=== PATIENT | female | born 1970 | race Caucasian/White ===

== ENCOUNTER 2019-03-18 18:32 | Emergency (ER) | payer OTHER ==
[2019-03-18 18:40] VITALS: BP 183/89
[2019-03-18] MEDS ORDERED: KETOROLAC TROMETHAMINE 60 MG/2 ML SDV IM ONE (19:20)
--- NOTE | 2019-03-18 19:25 | ER Document Report ---
ED Medical Screen (RME) - General Chief Complaint: Arm Pain Stated Complaint: ARM PAIN Time Seen by Provider: 03/18/19 19:02 Notes: Patient is a 49-year-old female presents to the emergency department with bilateral elbow and forearm pain. States on Friday night she had some generalized achiness in bilateral elbows. States it has progressed since Friday. States she feels as though she cannot fully extend both elbows due to pain. Patient is also complaining of generalized pain in both elbows and forearms with supination and pronation of bilateral forearms. Patient is denying any trauma or injury that she knows of. Denying any fevers, redness, swelling to either upper extremities. Patient does have passive range of motion of bilateral elbows, bilateral wrists. Active range of motion is limited secondary due to pain. Discussed this case with my attending Dr. Lopez who suggested to start to X- rays. GENERAL: Alert, interacts well. No acute distress. EXTREMITIES: Moves all 4 extremities spontaneously. No edema, normal radial and dorsalis pedis pulses bilaterally. No cyanosis. I have greeted and performed a rapid initial assessment of this patient. A comprehensive ED assessment and evaluation of the patient, analysis of test results and completion of the medical decision making process will be conducted by additional ED providers. I have specifically instructed the patient or family members with the patient to immediately return to any nursing staff should anything change in the patient's condition or with their chief complaint. This medical record was dictated with voice recognizing software. There may be grammatical, syntax errors that are unintended. - Related Data Allergies/Adverse Reactions: No Known Allergies Allergy (Unverified 03/18/19 18:34) Past Medical History - Social History Chew tobacco use (# tins/day): No Frequency of alcohol use: Occasional Drug Abuse: None Renal/ Medical History: Reports: Hx Kidney Stones. Denies: Hx Peritoneal Dialysis Past Surgical History: Reports: Hx Thyroid Surgery Physical Exam - Vital signs Vitals: Temp Pulse Resp BP Pulse Ox 98.3 F 98 18 183/89 H 97 03/18/19 18:38 03/18/19 18:38 03/18/19 18:38 03/18/19 18:38 03/18/19 18:38 Course - Vital Signs Vital signs: Temp Pulse Resp BP Pulse Ox 98.3 F 98 18 183/89 H 97 03/18/19 18:38 03/18/19 18:38 03/18/19 18:38 03/18/19 18:38 03/18/19 18:38
--- NOTE | 2019-03-18 19:54 | RADIOLOGY REPORT (SQ) ---
EXAM DESCRIPTION: FOREARM BILATERAL 2 VIEWS COMPLETED DATE/TIME: 03/18/2019 7:44 pm REASON FOR STUDY: pain COMPARISON: None. NUMBER OF VIEWS: Two views right. Two views left. TECHNIQUE: Two radiographic images acquired of the right and left forearm, including elbow and wrist in at least one projection. LIMITATIONS: None. FINDINGS: MINERALIZATION: Normal. BONES: No acute fracture. No worrisome bone lesions. SOFT TISSUES: No obvious swelling or foreign body. OTHER: No other significant finding. IMPRESSION: NEGATIVE STUDY OF THE RIGHT AND LEFT FOREARM. NO RADIOGRAPHIC EVIDENCE OF ACUTE INJURY. TECHNICAL DOCUMENTATION: JOB ID: [id number] [employer]- All Rights Reserved Reading location - IP/workstation name: [email or web address]
[2019-03-18] MEDS ORDERED: METHYLPREDNISOLONE INJ 125 MG/2 ML SDV IM ONE (20:59)
[2019-03-18] MEDS ORDERED: CYCLOBENZAPRINE HCL 10 MG TABLET PO ONE (21:00)
--- NOTE | 2019-03-18 21:08 | ER Document Report ---
ED Extremity Problem, Upper - General Chief Complaint: Arm Pain Stated Complaint: ARM PAIN Time Seen by Provider: 03/18/19 19:02 Notes: Patient is a 49-year-old female that comes to the emergency department for chief complaint of pain in her forearms bilaterally, this is been going on for several days worsening. She states she hurts in her forearms if she extends her elbows, but her worst pain is in her left ulnar area (she points) with movement of the wrist and she has pain shooting down her forearm from her elbow to her hand on the right side. She has numbness intermittently in the fourth and fifth digits of the right hand, but not in the other 3. She has some pain with flexion of the hands as well. She denies injury but she does work with small tools and typing persistently, she states she almost always has pain in her joints but this is worse than usual. She states [id number] ibuprofen has not been helping much. She denies redness, swelling, fever/chills. She denies any diagnosed medical history other than hypothyroidism on Synthroid and kidney stones. - Related Data Allergies/Adverse Reactions: No Known Allergies Allergy (Unverified 03/18/19 18:34) Past Medical History - General Information source: Patient - Social History Smoking Status: Never Smoker Chew tobacco use (# tins/day): No Frequency of alcohol use: Occasional Drug Abuse: None Lives with: Family Family History: Reviewed & Not Pertinent Patient has suicidal ideation: No Patient has homicidal ideation: No Renal/ Medical History: Reports: Hx Kidney Stones. Denies: Hx Peritoneal Dialysis Past Surgical History: Reports: Hx Thyroid Surgery - Immunizations Immunizations up to date: Yes Hx Diphtheria, Pertussis, Tetanus Vaccination: Yes Review of Systems - Review of Systems Constitutional: No symptoms reported EENT: No symptoms reported Cardiovascular: No symptoms reported Respiratory: No symptoms reported Gastrointestinal: No symptoms reported Genitourinary: No symptoms reported Female Genitourinary: No symptoms reported Musculoskeletal: See HPI Skin: See HPI Hematologic/Lymphatic: No symptoms reported Neurological/Psychological: No symptoms reported Physical Exam - Vital signs Vitals: Temp Pulse Resp BP Pulse Ox 98.3 F 98 18 183/89 H 97 03/18/19 18:38 03/18/19 18:38 03/18/19 18:38 03/18/19 18:38 03/18/19 18:38 - Notes Notes: GENERAL: Alert, interacts well. No acute distress. HEAD: Normocephalic, atraumatic. EYES: Pupils equal, round, and reactive to light. Extraocular movements intact. ENT: Oral mucosa moist, tongue midline. Oropharynx unremarkable. Airway patent. LUNGS: Clear to auscultation bilaterally, no wheezes, rales, or rhonchi. No respiratory distress. HEART: Regular rate and rhythm. No murmur ABDOMEN: Soft, non-tender. Non-distended. EXTREMITIES: Pain with palpation over the right elbow with reproduced symptoms of shooting pain down the left hand. Range of motion of the elbow is intact, normal shoulder exam. Hand examination shows some tenderness over the thenar area but no deficits in range of motion normal capillary refill and sensation. No snuffbox tenderness. Left wrist with pain over the ulnar aspect at the wrist, no snuffbox tenderness, normal range of motion although range of motion is painful. Normal hand exam. Normal elbow exam. Normal shoulder exam. Normal capillary refill and sensation. BACK: no cervical, thoracic, lumbar midline tenderness. No saddle anesthesia, normal distal neurovascular exam. NEUROLOGICAL: Alert and oriented x3. Normal speech. Cranial nerves II through XII grossly intact. PSYCH: Normal affect, normal mood. SKIN: Warm, dry, normal turgor. No rashes or lesions noted. Course - Re-evaluation Re-evalutation: X-rays are unremarkable. There is no swelling, erythema, fever, or lack of joint range of motion suggesting septic joint. Patient does have bilateral symptoms but they are different on each side, right side has evidence of ulnar compression with cubital tunnel syndrome, left side has tendinitis near the distal ulna. Unremarkable exam otherwise. Patient reports worsening symptoms for a while, unfortunately her occupation seems to make these joints and tendons inflamed. I have recommended work-release but she declined, states she needs to work. She was given a dose of steroids and will be provided steroids at home, recommended rest, provided with muscle relaxer after discussion of options on patient's request. Discussed follow-up and return precautions. Patient states understanding and agreement. She states she [facility]. - Vital Signs Vital signs: Temp Pulse Resp BP Pulse Ox 98.3 F 98 18 183/89 H 97 03/18/19 18:38 03/18/19 18:38 03/18/19 18:38 03/18/19 18:38 03/18/19 18:38 Discharge - Discharge Clinical Impression: Acute wrist pain Qualifiers: Laterality: unspecified laterality Qualified Code(s): M25.539 - Pain in unspecified wrist Elbow pain Qualifiers: Laterality: bilateral Qualified Code(s): M25.521 - Pain in right elbow Condition: Stable Disposition: HOME, SELF-CARE Additional Instructions: Your evaluation shows evidence of cubital tunnel syndrome on the right arm/elbow causing numbness in the fourth and fifth digits. Resting, icing, taking the prescribed medications can make symptoms resolve, however if symptoms continue you will likely need additional orthopedic management for this. In your left wrist there appears to be simply tendinitis. The provided brace for your wrist can help with this, use as needed. Take the muscle relaxer Flexeril as prescribed, this can sedate, recommendation is to use this exclusively at night. While taking the prednisone this can cause significant blood sugar elevations or weight gain if you are not careful, avoid carbohydrates in your diet. Because of ongoing joint pains consider autoimmune work-up with primary care and follow-up as well. Return if you worsen including severe swelling or pain, fever, or any other concerning or worsening symptoms. Prescriptions: Cyclobenzaprine HCl [Flexeril 5 mg Tablet] 1 - 2 tab PO TID PRN #15 tablet PRN Reason: Prednisone [Deltasone 10 mg Tablet] 10 mg PO ASDIR PRN #21 tablet PRN Reason: Forms: Elevated Blood Pressure
== END 2019-03-18 21:20 | disposition home or self-care (01) ==
LOC: ER 18:32
DX: M25.532 Pain in left wrist (principal); M25.521 Pain in right elbow; M79.601 Pain in right arm; M79.602 Pain in left arm
CPT/HCPCS: 99283; 96374; 96375; 73090; L3908; J1885; J2930

== ENCOUNTER 2019-04-09 09:54 | Emergency (ER) | payer OTHER ==
--- NOTE | 2019-04-09 10:17 | ER Document Report ---
ED Medical Screen (RME) - General Chief Complaint: Skin Problem Stated Complaint: SKIN ISSUE Time Seen by Provider: 04/09/19 10:07 Mode of Arrival: Ambulatory Information source: Patient Notes: Patient is a 49-year-old female presenting to the emergency department with multiple vague complaints today. She reports low-grade fevers at home over the last week, she reports all over joint pain and swelling over the last 10 days. She also reports multiple red areas throughout her body specifically on her legs and bilateral axilla. She denies any nausea, vomiting, diarrhea or dysuria. She does report she has a history of hypothyroidism with subsequent thyroid removal. She states she takes levothyroxine but has not had her thyroid levels checked in at least 7 months. She states there was a change in her dosage by 1 of [place] without checking her levels prior to decreasing the dose. Exam: Erythematous areas to bilateral axilla, nonindurated, nonfluctuant, heat noted. Unable to examine allegedly lesions on the legs as patient currently being seen in [facility] track and patient is wearing jeans. Due to patient's multiple symptoms patient is upgraded to KAREN 3, she will be seen on the main side. I have greeted and performed a rapid initial assessment of this patient. A comprehensive ED assessment and evaluation of the patient, analysis of test results and completion of the medical decision making process will be conducted by additional ED providers. I have specifically instructed the patient or family members with the patient to immediately return to any nursing staff should anything change in the patient's condition or with their chief complaint. This medical record was dictated with voice recognizing software. There may be grammatical, syntax errors that are unintended. - Related Data Allergies/Adverse Reactions: No Known Allergies Allergy (Verified 04/09/19 09:57) Past Medical History Renal/ Medical History: Reports: Hx Kidney Stones. Denies: Hx Peritoneal Dialysis Past Surgical History: Reports: Hx Thyroid Surgery - Immunizations Immunizations up to date: Yes Hx Diphtheria, Pertussis, Tetanus Vaccination: Yes
[2019-04-09 11:15] LABS: HEMATOCRIT 15.6 % (36.0-47.0); MEAN CORPUSCULAR HEMOGLOBIN 35.2 pg (27.0-33.4); MEAN CORPUSCULAR HGB CONC 33.3 g/dL (32.0-36.0); MEAN CORPUSCULAR VOLUME 106 fl (80-97); RED BLOOD COUNT 1.47 10^6/uL (3.72-5.28)
[2019-04-09 11:19] LABS: APPEARANCE,URINE CLEAR; BILIRUBIN,URINE NEGATIVE (NEGATIVE); COLOR,URINE YELLOW; GLUCOSE, URINE NEGATIVE (NEGATIVE); KETONES,URINE NEGATIVE (NEGATIVE); LEUKOCYTE ESTERASE,URINE SMALL (NEGATIVE); NITRITE,URINE NEGATIVE (NEGATIVE); PROTEIN,URINE NEGATIVE (NEGATIVE); URINE SPECIFIC GRAVITY 1.006; UROBILINOGEN,URINE NEGATIVE mg/dL (<2.0)
[2019-04-09 11:29] LABS: ALBUMIN 4.1 g/dL (3.5-5.0); ALKALINE PHOSPHATASE 82 U/L (38-126); ANION GAP 10 (5-19); ASPARTATE AMINO TRANSFERASE 33 U/L (14-36); BILIRUBIN,DIRECT 0.3 mg/dL (0.0-0.4); BILIRUBIN,TOTAL 0.7 mg/dL (0.2-1.3); BLOOD UREA NITROGEN 16 mg/dL (7-20); CARBON DIOXIDE 26 mmol/L (22-30); CHLORIDE 103 mmol/L (98-107); GLUCOSE 110 mg/dL (75-110); POTASSIUM 3.8 mmol/L (3.6-5.0); TOTAL PROTEIN 7.2 g/dL (6.3-8.2)
[2019-04-09 11:51] LABS: FREE T3 2.37 pg/mL (2.77-5.27); FREE T4 (FREE THYROXINE) 2.17 ng/dL (0.78-2.19)
[2019-04-09 11:59] LABS: HEMOGLOBIN 5.2 g/dL (12.0-15.5)
[2019-04-09 12:04] LABS: THYROID STIMULATING HORMONE 0.89 uIU/mL (0.47-4.68)
[2019-04-09 12:07] LABS: ABSOLUTE LYMPHOCYTES# (MANUAL) 3.8 10^3/uL (0.5-4.7); ABSOLUTE MONOCYTES # (MANUAL) 2.1 10^3/uL (0.1-1.4); BAND NEUTROPHILS % (MANUAL) 5 % (3-5); BASOPHILS % (MANUAL) 0 % (0-2); EOSINOPHILS % (MANUAL) 0 % (0-6); IMMATURE MONONUCLEAR% (MANUAL) 11 % (0); LYMPHOCYTES % (MANUAL) 11 % (13-45); METAMYELOCYTES % (MANUAL) 5 % (0); MONOCYTES % (MANUAL) 6 % (3-13); MYELOCYTES % (MANUAL) 5 % (0); PROMYELOCYTES % (MANUAL) 1 % (0); SEGMENTED NEUTROPHILS % (MAN) 56 % (42-78); TOTAL CELLS COUNTED 100
[2019-04-09 12:10] LABS: POLYCHROMASIA SLIGHT
[2019-04-09 12:11] LABS: ANISOCYTOSIS 2+; PLATELET COMMENT DECREASED; POIKILOCYTOSIS 2+; STOMATOCYTES 2+
[2019-04-09 12:12] LABS: WHITE BLOOD COUNT 34.6 10^3/uL (4.0-10.5)
[2019-04-09 12:16] LABS: PATH REVIEW PATHOLOGIST REVIEWED
[2019-04-09 12:19] LABS: PLATELET COUNT 12 10^3/uL (150-450)
--- NOTE | 2019-04-09 13:39 | ER Document Report ---
ED General - General Mode of Arrival: Ambulatory <MARY MOE - Last Filed: 04/09/19 20:15> <CHANTE CHOWDHURY - Last Filed: 04/09/19 21:15> - General Chief Complaint: Skin Problem Stated Complaint: SKIN ISSUE Time Seen by Provider: 04/09/19 10:07 - HPI Notes: Patient is a 49-year-old female with a history of hypothyroidism who presents complaining of generalized vague symptoms. Patient states that she has been feeling generally weak with swelling in her joints and can bruise easily. Patient states that she has noticed some red nodules on her legs as well as red areas in her axilla bilaterally that are painful as well. She has also been having subjective fevers at home. Patient states that all of her symptoms began about 2 and half weeks ago, but significantly worsened since then. Patient states that she tires very easily when she is ambulating. She is able to eat and drink otherwise without difficultly. She is urinating normally and having normal bowel movements. No report of melena or hematochezia. Denies any headache, head injury, neck pain, changes in vision/speech/mentation/hearing, URI, sore throat, chest pain, palpitations, syncope, cough, wheeze, dyspnea, abdominal pain, nausea/vomiting/diarrhea, urinary retention, dysuria, hematuria, loss of control of bowel or bladder, numbness/tingling, saddle anesthesia, muscle paralysis, or rash. (MARY MOE) - Related Data Allergies/Adverse Reactions: No Known Allergies Allergy (Verified 04/09/19 09:57) Past Medical History - General Information source: Patient - Social History Smoking Status: Never Smoker Chew tobacco use (# tins/day): No Frequency of alcohol use: None Drug Abuse: None Family History: Reviewed & Not Pertinent Patient has suicidal ideation: No Patient has homicidal ideation: No Renal/ Medical History: Reports: Hx Kidney Stones. Denies: Hx Peritoneal Dialysis Past Surgical History: Reports: Hx Thyroid Surgery - Immunizations Immunizations up to date: Yes Hx Diphtheria, Pertussis, Tetanus Vaccination: Yes <MARY MOE - Last Filed: 04/09/19 20:15> Review of Systems - Review of Systems -: Yes All other systems reviewed and negative <MARY MOE - Last Filed: 04/09/19 20:15> Physical Exam <MARY MOE - Last Filed: 04/09/19 20:15> - Vital signs Vitals: Temp Pulse Resp BP Pulse Ox 98.1 F 106 H 16 152/75 H 97 04/09/19 10:09 04/09/19 10:09 04/09/19 10:09 04/09/19 10:09 04/09/19 10:09 - Notes Notes: PHYSICAL EXAMINATION: GENERAL: Well-appearing, well-nourished and in no acute distress. HEAD: Atraumatic, normocephalic. EYES: Pupils equal round and reactive to light, extraocular movements intact, sclera anicteric, conjunctiva are normal. ENT: Nares patent and without discharge. oropharynx clear without exudates. No tonsilar hypertrophy or erythema. Moist mucous membranes. NECK: Normal range of motion, supple without lymphadenopathy LUNGS: Breath sounds clear to auscultation bilaterally and equal. No wheezes rales or rhonchi. HEART: Regular rate and rhythm without murmurs, rubs, gallops. ABDOMEN: Soft, nontender, nondistended abdomen. No guarding, no rebound. Normal bowel sounds present. No CVA tenderness bilaterally. Musculoskeletal: FROM to passive/active. Strength 4+/5 b/l. Extremities: No cyanosis, clubbing, or edema b/l. Peripheral pulses 2+. Capillary refill less than 3 seconds. NEUROLOGICAL: Cranial nerves grossly intact. Normal speech, normal gait. Normal sensory, motor exams PSYCH: Normal mood, normal affect. SKIN: There are multiple small erythemic nodules to her legs bilaterally. There is also noted spots of ecchymosis. Under her axilla bilaterally there are flat macular erythemic areas that are tender without obvious fluctuance or streaks/purulence. No obvious induration to the axilla areas. (MARY MOE) Course - Laboratory Result Diagrams: 04/09/19 10:35 04/09/19 10:35 <MARY MOE - Last Filed: 04/09/19 20:15> - Laboratory Result Diagrams: 04/09/19 10:35 04/09/19 10:35 <CHANTE CHOWDHURY - Last Filed: 04/09/19 21:15> - Re-evaluation Re-evalutation: 04/09/19 13:[address] French (onc) who will contact the pathologist and call me back. 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 We will give cefepime 2g as precaution for the urine. Will speak with [facility] about blood transfusion. [facility] notified. 04/09/19 14:35 I have been in contact with both [facility] as well Dr. French. Dr. French has discussed this case with Dr. Cabrera who is the Leukemia doc at [facility], but will still need to go through the transfer center. I spoke with Dr. Roque, Onc/[facility], who would like an ED to ED transfer due to room availability issues. He would like 2 units of radiated blood and a lactic acid/uric acid ordered. BC have been ordered as well. I then spoke with the ED provider, Dr. Hale, who accepted pt for admit. We are now working on transport for the patient. Dr. French will discuss the situation with the family on the phone once they return and pt is being moved to monitored bed. 04/09/19 20:15 [facility] called. Pt will be going to a room and not ED-ED. Accepted by Dr. Cabrera at [facility]. Patient has no new concerns or complaints. Vitals acceptable. Patient stable for transfer at this time. Pt will need another transfer update note if she is not discharged within the next hour. Reviewed with Azalia Chowdhury ANNUAL GIVING OFFICER. (MARY MOE) 04/09/19 21:14 Transport is here. Patient has received Tylenol for low-grade temperature. Patient also complaining of some pain 4 mg of morphine ordered. Patient is alert and oriented and agrees with transport. (CHANTE CHOWDHURY) - Vital Signs Vital signs: Temp Pulse Resp BP Pulse Ox 100.5 F H 105 H 18 129/68 H 97 04/09/19 20:41 04/09/19 20:41 04/09/19 20:41 04/09/19 20:41 04/09/19 20:41 - Laboratory Laboratory results interpreted by me: 04/09/19 04/09/19 04/09/19 10:35 10:35 10:35 WBC 34.6 H* RBC 1.47 L Hgb 5.2 L Hct 15.6 L MCV 106 H MCH 35.2 H RDW 16.0 H Plt Count 12 L* Lymphocytes % (Manual) 11 L Metamyelocytes % 5 H Myelocytes % 5 H Promyelocytes % 1 H Immature Leukocytes % 11 H Abs Neuts (Manual) 24.9 H Abs Monocytes (Manual) 2.1 H Free T3 pg/mL 2.37 L Urine Blood SMALL H Ur Leukocyte Esterase SMALL H Crossmatch 04/09/19 15:02 WBC RBC Hgb Hct MCV MCH RDW Plt Count Lymphocytes % (Manual) Metamyelocytes % Myelocytes % Promyelocytes % Immature Leukocytes % Abs Neuts (Manual) Abs Monocytes (Manual) Free T3 pg/mL Urine Blood Ur Leukocyte Esterase Crossmatch See Detail Critical Care Note - Critical Care Note Total time excluding time spent on procedures (mins): 40 <MARY MOE - Last Filed: 04/09/19 20:15> - Critical Care Note Comments: spent with multiple consults and re-evals. 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
[2019-04-09 13:40] LABS: INTERNATIONAL RATION (INR) 1.11; PARTIAL THROMBOPLASTIN TIME 34.8 SEC (23.5-35.8); PROTHROMBIN TIME 14.4 SEC (11.4-15.4)
[2019-04-09] MEDS ORDERED: CEFEPIME 2 GM/D5W RTU 2 GM/50 ML RTUPB IV ONE (13:55)
[2019-04-09] MEDS ORDERED: NORMAL SALINE 250 ML IV PRN (15:10)
[2019-04-09] MEDS ORDERED: MORPHINE SULFATE 10 MG/ML INJ IV ONE ×2 (17:02→21:13)
[2019-04-09] MEDS ORDERED: ONDANSETRON HCL INJ/PF 4 MG/2 ML SDV IV ONE (17:12)
[2019-04-09] MEDS ORDERED: ACETAMINOPHEN 325 MG TABLET PO ONE (20:44)
[2019-04-09 21:40] VITALS: BP 136/68
== END 2019-04-09 21:50 | disposition short-term general hospital (02) ==
LOC: ER 09:54
DX: C95.00 Acute leukemia of unspecified cell type not having achieved remission (principal); R53.1 Weakness; E03.9 Hypothyroidism, unspecified; M25.40 Effusion, unspecified joint; Z87.442 Personal history of urinary calculi; R50.9 Fever, unspecified
CPT/HCPCS: 96376; 99284; 96375; 96365; 88184; 88185 ×22; 86900; 86901; 36415; 87040; 84439; 36430; 86850; 83605; 84443; 84550; 85025; 85384; 85610; 85730; 80053; 81001; 84481; 86920; P9016; J2270; J2405; J0692

== ENCOUNTER 2019-08-18 00:55 | Emergency (ER) | payer OTHER ==
[2019-08-18] MEDS ORDERED: VANCOMYCIN HCL INJ 1000 MG VIAL IV ONE ×2 (02:04→05:00)
[2019-08-18] MEDS ORDERED: RINGERS LACTATED IV ONE (02:04)
[2019-08-18] MEDS ORDERED: ACETAMINOPHEN 325 MG TABLET PO ONE ×2 (02:04→08:49)
[2019-08-18] MEDS ORDERED: IMIPENEM/CILASTATIN SODIUM INJ 500 MG VIAL IV ONE (02:04)
[2019-08-18] MEDS ORDERED: ONDANSETRON HCL INJ/PF 4 MG/2 ML SDV IV ONE (02:06)
[2019-08-18 02:16] LABS: APPEARANCE,URINE CLEAR; BILIRUBIN,URINE NEGATIVE (NEGATIVE); COLOR,URINE YELLOW; GLUCOSE, URINE NEGATIVE (NEGATIVE); KETONES,URINE NEGATIVE (NEGATIVE); PROTEIN,URINE 30 mg/dL (NEGATIVE); URINE SPECIFIC GRAVITY 1.013; UROBILINOGEN,URINE NEGATIVE mg/dL (<2.0)
[2019-08-18] MEDS: MORPHINE SULFATE 10 MG/ML INJ IV PRN ×2 (02:51→09:40)
[2019-08-18 03:13] LABS: INTERNATIONAL RATION (INR) 1.04; PROTHROMBIN TIME 13.6 SEC (11.4-15.4)
[2019-08-18 03:14] LABS: VENOUS BLOOD BASE EXCESS -0.6 mmol/L; VENOUS BLOOD HCO3 23.6 mmol/L (20-32); VENOUS BLOOD PCO2 37.4 mmHg (35-63); VENOUS BLOOD PH 7.42 (7.30-7.42)
[2019-08-18 03:23] LABS: ALKALINE PHOSPHATASE 109 U/L (38-126); ANION GAP 10 (5-19); ASPARTATE AMINO TRANSFERASE 39 U/L (14-36); BILIRUBIN,DIRECT 0.1 mg/dL (0.0-0.4); BLOOD UREA NITROGEN 17 mg/dL (7-20); CALCIUM 8.8 mg/dL (8.4-10.2); CARBON DIOXIDE 25 mmol/L (22-30); CHLORIDE 106 mmol/L (98-107); GLUCOSE 143 mg/dL (75-110); POTASSIUM 3.3 mmol/L (3.6-5.0)
[2019-08-18 03:24] LABS: TOTAL PROTEIN 6.7 g/dL (6.3-8.2)
--- NOTE | 2019-08-18 03:28 | RADIOLOGY REPORT (SQ) ---
EXAM DESCRIPTION: XR CHEST 1 VIEW COMPLETED DATE/TME: 08/18/2019 02:05 CLINICAL HISTORY: 49 years, Female, fever COMPARISON: None. NUMBER OF VIEWS: 1 TECHNIQUE: Portable chest LIMITATIONS: None. FINDINGS: The heart size is normal. Central venous catheter in place. Lungs clear. No pneumothorax IMPRESSION: No acute cardiopulmonary process copyright 2010 [employer]- All Rights Reserved
--- NOTE | 2019-08-18 03:30 | ER Document Report ---
ED General - General TRAVEL OUTSIDE OF THE U.S. IN LAST 30 DAYS: No <ANDRA NICOLE E - Last Filed: 08/18/19 03:30> <AP ALCANTARA P - Last Filed: 08/18/19 05:07> - General Chief Complaint: Fever Stated Complaint: SENT BY ONCOLOGIST/FEVER Time Seen by Provider: 08/18/19 01:29 - HPI Notes: 49-year-old female being treated with chemotherapy at [facility] for AML. She was there earlier today and received 2 units of platelets. After she got home she developed a headache and fever. Temperature was up to 102. Advised to come to local ED by her oncologist for evaluation and they wish to be notified after we complete this evaluation. Denies cough. Denies dysuria. Denies any focal neurologic symptoms. Denies abdominal pain. Denies any inflammation at site of her central line. Patient says she previously had an episode of intracranial bleeding and because of the headache tonight she is concerned about this as well. (ANDRA NICOLE) - Related Data Allergies/Adverse Reactions: No Known Allergies Allergy (Verified 08/18/19 01:12) Past Medical History - General Information source: Patient, Relative - Sometimes you just have to unplug the PowerMic and put it back in or sign off dragon sign - Social History Smoking Status: Former Smoker Family History: Reviewed & Not Pertinent Patient has suicidal ideation: No Patient has homicidal ideation: No Renal/ Medical History: Reports: Hx Kidney Stones. Denies: Hx Peritoneal Dialysis Past Surgical History: Reports: Hx Thyroid Surgery - Immunizations Immunizations up to date: Yes Hx Diphtheria, Pertussis, Tetanus Vaccination: Yes <ANDRA NICOLE - Last Filed: 08/18/19 03:30> Review of Systems <ANDRA NICOLE - Last Filed: 08/18/19 03:30> - Review of Systems Notes: Constitutional: As per HPI. HENT: Negative for sore throat. Eyes: Negative for visual changes. Cardiovascular: Negative for chest pain. Respiratory: Negative for shortness of breath. Gastrointestinal: Negative for abdominal pain, vomiting or diarrhea. Genitourinary: Negative for dysuria. Musculoskeletal: Negative for back pain. Skin: Negative for rash. Neurological: As per HPI. 10 point ROS negative except as marked above and in HPI. (ANDRA NICOLE) Physical Exam <ANDRA NICOLE - Last Filed: 08/18/19 03:30> - Vital signs Vitals: Temp Pulse Resp BP Pulse Ox 102.9 F H 136 H 20 166/88 H 98 08/18/19 01:09 08/18/19 01:09 08/18/19 01:09 08/18/19 01:09 08/18/19 01:09 - Notes Notes: GENERAL: Female patient approximately stated age who appears uncomfortable. Cushingoid facies. SKIN: Good turgor no rashes. HEAD: Normocephalic atraumatic. Scalp alopecia. EYES: PERRLA. EOMI. Conjunctivae and sclerae clear. EARS: CANALS AND TMS CLEAR. NOSE: CLEAR. MOUTH: Moist mucosa. Good dentition. No stridor or edema. No drooling. NECK: Supple. No masses or thyromegaly. No adenopathy. Carotids 2+ without bruits. No JVD. BACK: Symmetrical without tenderness. CHEST: Tunneled triple-lumen catheter present upper anterior chest wall on the right. Site appears clean with no tenderness, drainage or redness. Respirations unlabored. Breath sounds clear and symmetrical. HEART: Regular rhythm. No murmur gallop or rub. ABDOMEN: Soft nontender without masses, organomegaly or rebound. Bowel sounds normally active. No bruits. GENITALIA: Deferred. EXTREMITIES: No edema. No calf tenderness. Cap refill less than 1.5 seconds. Dorsalis pedis and posterior tibial pulses 3+ and symmetrical. NEUROLOGICAL: GCS 15. Alert and oriented x3. Normal gait. Fluent speech. Cranial nerves II through XII intact. Sensorimotor and cerebellar normal. No rmal tone. PSYCHIATRIC: Appropriate affect. (ANDRA NICOLE) Course - Laboratory Result Diagrams: 08/18/19 02:45 08/18/19 02:45 <ANDRA NICOLE - Last Filed: 08/18/19 03:30> - Laboratory Result Diagrams: 08/18/19 02:45 08/18/19 02:45 <AP ALCANTARA - Last Filed: 08/18/19 05:07> - Re-evaluation Re-evalutation: 08/18/19 03:30 Septic work-up initiated. IV fluid bolus. Lactate is 2.5. Patient is neutropenic. Report of head CT is pending. Patient is receiving empiric antibiotic coverage with meropenem and Vanco. Pending further test results we will coordinate transfer back to [facility]. Further care is turned over to Dr. Alcantara at this time. (ANDRA NICOLE) - Vital Signs Vital signs: Temp Pulse Resp BP Pulse Ox 102.2 F H 136 H 20 166/88 H 97 08/18/19 04:28 08/18/19 01:09 08/18/19 01:09 08/18/19 01:09 08/18/19 04:27 - Laboratory Laboratory results interpreted by me: 08/18/19 08/18/19 08/18/19 02:04 02:45 02:45 Potassium 3.3 L Glucose 143 H POC Glucose Lactic Acid 2.6 H AST 39 H Urine Protein 30 H Urine Blood SMALL H 08/18/19 02:46 Potassium Glucose POC Glucose 151 H Lactic Acid AST Urine Protein Urine Blood Discharge <ANDRA NICOLE E - Last Filed: 08/18/19 03:30> <AP ALCANTARA P - Last Filed: 08/18/19 05:07> - Discharge Clinical Impression: Sepsis source undetermined, Neutropenic fever AML (acute myeloblastic leukemia) Qualifiers: Leukemia Active/Remission status: without remission Qualified Code(s): C92.00 - Acute myeloblastic leukemia, not having achieved remission Condition: Serious Disposition: [place]
--- NOTE | 2019-08-18 04:24 | ER Document Report ---
Doctor's Note Notes: 08/18/19 04:24 I assumed care of this patient from Dr. Owen at the end of his shift pending labs and disposition. Please see his note for complete history and physical. Briefly, this is a 1-year-old female with a history of AML who is been managed at [facility], who presents today with a complaint of fever. She had platelets transfused today at [facility]. She also had a headache earlier which is now resolved. Exam: Patient is febrile but otherwise hemodynamically stable. Nonfocal neurologic exam. Medical decision making: Patient's work-up shows pancytopenia with neutropenia. Initial WBC 0.1, H&H 7.7 /20.3 and platelets 25,000 per lab. Lab wants to redraw a repeat CBC so there would not additionally release these. Given these findings, patient will need to be transferred. Patient already received vancomycin per Dr. Owen. 08/18/19 04:25 08/18/19 05:04 Patient's care discussed with Dr. Ramos at [facility]. Patient is accepted for transfer. Diagnosis: 1 neutropenic fever. 2. Pancytopenia. Disposition: Transfer to [facility].
[2019-08-18 04:40] LABS: ABSOLUTE LYMPHOCYTES (AUTO) 0.1 10^3/uL (0.5-4.7); EOSINOPHILS % (AUTO) 6.3 % (0-6); HEMATOCRIT 20.1 % (36.0-47.0); LYMPHOCYTES % (AUTO) 82.5 % (13-45); MEAN CORPUSCULAR HEMOGLOBIN 30.4 pg (27.0-33.4); MEAN CORPUSCULAR HGB CONC 35.4 g/dL (32.0-36.0); MEAN CORPUSCULAR VOLUME 86 fl (80-97); MONOCYTES % (AUTO) 5.3 % (3-13); RED BLOOD COUNT 2.35 10^6/uL (3.72-5.28); RED CELL DISTRIBUTION WIDTH 15.8 % (11.5-14.0); SEGMENTED NEUTROPHILS % (AUTO) 5.9 % (42-78); TOTAL CELLS COUNTED % (AUTO) 100 %
[2019-08-18 04:43] LABS: HEMOGLOBIN 7.1 g/dL (12.0-15.5)
--- NOTE | 2019-08-18 04:48 | RADIOLOGY REPORT (SQ) ---
EXAM: CT head without IV contrast CLINICAL DATA: Headache and fever TECHNICAL DATA: Multiple axial CT images of the brain were performed followed by sagittal and coronal reconstructed images. The CT study is performed according to ALARA (as low as reasonably achievable) or ALARA/IMAGE GENTLY, with automatic adjustment of mA and/or kV according to patient size. Performed on: 08/18/2019 at 3:07 AM Comparisons: None. FINDINGS: There is no evidence of mass, acute mass effect or midline shift. There are no acute extra-axial fluid collections. There is no evidence of acute intracranial hemorrhage. The cerebral sulci and ventricles are normal in size and configuration. There are no focal abnormal areas of increased or decreased attenuation. There is a small left basal ganglia calcification. There is no significant mucosal thickening of the paranasal sinuses. There is partial opacification of the right mastoid air cells. The left mastoid air cells are clear. The middle ear cavities are clear. The orbital contents are grossly unremarkable. No acute osseous abnormalities are identified. No focal soft tissue abnormalities are identified. IMPRESSION: 1. There is no evidence of acute intracranial pathology. 2. Partial opacification of the right mastoid air cells which could reflect acute or chronic mastoiditis.
[2019-08-18 05:05] LABS: ANISOCYTOSIS SLIGHT; BURR CELLS SLIGHT; OVALOCYTES SLIGHT; POIKILOCYTOSIS SLIGHT; POLYCHROMASIA SLIGHT; TEAR DROP CELLS SLIGHT
[2019-08-18 05:06] LABS: PLATELET COMMENT DECREASED
[2019-08-18 05:07] LABS: PLATELET COUNT 26 10^3/uL (150-450); WHITE BLOOD COUNT 0.1 10^3/uL (4.0-10.5)
[2019-08-18 09:46] VITALS: BP 127/66
--- NOTE | 2019-08-18 20:10 | EKG REPORT ---
SEVERITY:- ABNORMAL ECG - SINUS TACHYCARDIA NONSPECIFIC INTRAVENTRICULAR CONDUCTION DELAY ABNRM R PROG, CONSIDER ASMI OR LEAD PLACEMENT : Confirmed by: Diana Montemayor MD 18-Aug-2019 20:09:03
[2019-08-19 11:13] LABS: PATH REVIEW PATHOLOGIST REVIEWED
== END 2019-08-18 09:44 | disposition short-term general hospital (02) ==
LOC: ER 00:55
DX: A41.9 Sepsis, unspecified organism (principal); D61.818 Other pancytopenia; R50.81 Fever presenting with conditions classified elsewhere; C92.00 Acute myeloblastic leukemia, not having achieved remission; R51 Headache; Z98.890 Other specified postprocedural states; Z87.891 Personal history of nicotine dependence
CPT/HCPCS: 93005; 99284; 96361; 96375; 96365; 96366; 96367; 36415; 87040; 82962; 83605; 85025; 85610; 87077; 80053; 81001; 87186; 82803; 87150 ×26; 71045; 70450; 93010; J0743; J2270; J2405; J7120; J3370

== ENCOUNTER 2019-09-30 18:11 | Emergency (ER) | payer OTHER ==
[2019-09-30] MEDS ORDERED: ACETAMINOPHEN 325 MG TABLET PO ONE (18:54)
[2019-09-30] MEDS ORDERED: NORMAL SALINE IV ONE (18:54)
--- NOTE | 2019-09-30 18:59 | ER Document Report ---
ED Medical Screen (RME) - General Chief Complaint: Fever Stated Complaint: FEVER Time Seen by Provider: 09/30/19 18:49 Notes: Patient is a 49-year-old female who presents emergency department with a chief complaint of fever. Patient reports that she started to develop a fever today. Patient reports he got as high as 100.9. Denies sick contacts. Patient did receive an infusion of platelets yesterday. Patient currently receiving chemotherapy for leukemia. Patient's last chemo treatment was last Friday. Patient reports headache. Denies nausea or vomiting or diarrhea. Does report body aches. TRAVEL OUTSIDE OF THE [place] IN LAST 30 DAYS: No - Related Data Allergies/Adverse Reactions: Iodinated Contrast Media Allergy (Verified 09/30/19 18:36) Past Medical History - Social History Chew tobacco use (# tins/day): No Frequency of alcohol use: None Drug Abuse: None Renal/ Medical History: Reports: Hx Kidney Stones. Denies: Hx Peritoneal Dialysis Past Surgical History: Reports: Hx Thyroid Surgery - Immunizations Immunizations up to date: Yes Hx Diphtheria, Pertussis, Tetanus Vaccination: Yes Physical Exam - Vital signs Vitals: Temp Pulse Resp BP Pulse Ox 100.9 F H 128 H 18 181/83 H 100 09/30/19 18:19 09/30/19 18:19 09/30/19 18:19 09/30/19 18:19 09/30/19 18:19 - Respiratory Respiratory status: No respiratory distress Chest status: Nontender Breath sounds: Normal Chest palpation: Normal Course - Re-evaluation Re-evalutation: 09/30/19 18:58 Patient noted to have a low-grade fever in triage, patient is immunocompromised as she is currently going through chemo for leukemia. Patient is tachycardic. Will initiate the sepsis protocol. Patient upgraded to an KAREN level 2. Blood work and IV fluids have been initiated and ordered. Patient will need a thorough examination by a provider once placed into a room. I have greeted and performed a rapid initial assessment of this patient. A comprehensive ED assessment and evaluation of the patient, analysis of test results and completion of the medical decision making process will be conducted by additional ED providers. - Vital Signs Vital signs: Temp Pulse Resp BP Pulse Ox 100.9 F H 128 H 18 181/83 H 100 09/30/19 18:19 09/30/19 18:19 09/30/19 18:19 09/30/19 18:19 09/30/19 18:19
--- NOTE | 2019-09-30 20:13 | RADIOLOGY REPORT (SQ) ---
EXAM DESCRIPTION: PA and lateral radiographs of the chest CLINICAL HISTORY: 49 years Female, FEVER, COUGH, CHEMO PATIENT COMPARISON: AP portable view of the chest 08/18/2019 FINDINGS: Lungs: Lungs are clear. No pneumonia or edema. No pneumothorax or pleural effusion. Mediastinum: Cardiac and mediastinal silhouette are unchanged. Catheter remains in the superior vena cava. The appearance is stable. Bones: Osseous structures are stable IMPRESSION: No acute process. No significant interval change.
[2019-09-30 20:56] LABS: A TYPE INFLUENZA AG NEGATIVE (NEGATIVE); B INFLUENZA AG NEGATIVE (NEGATIVE)
[2019-09-30] MEDS ORDERED: CEFEPIME 2 GM/D5W RTU 2 GM/50 ML RTUPB IV ONE (21:05)
[2019-09-30] MEDS ORDERED: VANCOMYCIN HCL INJ 1000 MG VIAL IV ONE (21:06)
[2019-09-30 21:13] LABS: INTERNATIONAL RATION (INR) 1.02; PROTHROMBIN TIME 13.4 SEC (11.4-15.4)
[2019-09-30 21:15] LABS: ABSOLUTE LYMPHOCYTES (AUTO) 0.1 10^3/uL (0.5-4.7); EOSINOPHILS % (AUTO) 3.6 % (0-6); HEMATOCRIT 25.2 % (36.0-47.0); LYMPHOCYTES % (AUTO) 88.3 % (13-45); MEAN CORPUSCULAR HEMOGLOBIN 30.2 pg (27.0-33.4); MEAN CORPUSCULAR HGB CONC 35.8 g/dL (32.0-36.0); MEAN CORPUSCULAR VOLUME 84 fl (80-97); MONOCYTES % (AUTO) 5.4 % (3-13); RED CELL DISTRIBUTION WIDTH 13.9 % (11.5-14.0); SEGMENTED NEUTROPHILS % (AUTO) 2.7 % (42-78); TOTAL CELLS COUNTED % (AUTO) 100 %
[2019-09-30 21:19] LABS: ALKALINE PHOSPHATASE 104 U/L (38-126); ANION GAP 11 (5-19); ASPARTATE AMINO TRANSFERASE 45 U/L (14-36); BILIRUBIN,DIRECT 0.1 mg/dL (0.0-0.4); BILIRUBIN,TOTAL 1.2 mg/dL (0.2-1.3); BLOOD UREA NITROGEN 17 mg/dL (7-20); CALCIUM 9.2 mg/dL (8.4-10.2); CARBON DIOXIDE 25 mmol/L (22-30); CHLORIDE 103 mmol/L (98-107); GLUCOSE 143 mg/dL (75-110); POTASSIUM 3.4 mmol/L (3.6-5.0); TOTAL PROTEIN 6.8 g/dL (6.3-8.2)
--- NOTE | 2019-09-30 21:21 | ER Document Report ---
Entered by BANDAR ZULUAGA SCRIBE 09/30/192031 Acting as scribe for:ASHLEY LUCERO IV, MD ED General - General Chief Complaint: Fever Stated Complaint: FEVER Time Seen by Provider: 09/30/19 18:49 Mode of Arrival: Ambulatory Information source: Patient Notes: This 49 year old female patient with acute myoblastic leukemia presents to the emergency department today with complaints of fevers, chills, generalized body aches, generalized weakness, and a headache since earlier today. Patient is followed by [facility] and her oncologist is Dr. Velazco. Patient reports that her last round of chemotherapy was one week ago and her next step is a bone marrow transplant. In July 2019 the patient was seen here with a white count of 0.1 and was empirically started on meropenem and vancomycin. TRAVEL OUTSIDE OF THE [place] IN LAST 30 DAYS: No - Related Data Allergies/Adverse Reactions: Iodinated Contrast Media Allergy (Verified 09/30/19 18:36) Past Medical History - General Information source: Patient, [facility] - Social History Smoking Status: Former Smoker Cigarette use (# per day): No Chew tobacco use (# tins/day): No Frequency of alcohol use: None Drug Abuse: None Family History: Reviewed & Not Pertinent Patient has suicidal ideation: No Patient has homicidal ideation: No Renal/ Medical History: Reports: Hx Kidney Stones Malignancy Medical History: Reports: Other - Myoblastic leukemia Past Surgical History: Reports: Hx Thyroid Surgery - Immunizations Immunizations up to date: Yes Hx Diphtheria, Pertussis, Tetanus Vaccination: Yes Review of Systems - Review of Systems Constitutional: See HPI, Chills, Fever, Weakness EENT: See HPI, Nose congestion Cardiovascular: No symptoms reported Respiratory: No symptoms reported Gastrointestinal: No symptoms reported Genitourinary: No symptoms reported Female Genitourinary: No symptoms reported Musculoskeletal: See HPI, Muscle pain Skin: No symptoms reported Hematologic/Lymphatic: No symptoms reported Neurological/Psychological: No symptoms reported -: Yes All other systems reviewed and negative Physical Exam - Vital signs Vitals: Temp Pulse Resp BP Pulse Ox 100.9 F H 128 H 18 181/83 H 100 09/30/19 18:19 09/30/19 18:19 09/30/19 18:19 09/30/19 18:19 09/30/19 18:19 - Notes Notes: Physical Exam: General: Alert, appears chronically ill, wearing a mask. HEENT: Normocephalic. Atraumatic. PERRL. Extraocular movements intact. Orophary nx clear. Neck: Supple. Non-tender. Respiratory: No respiratory distress. Clear and equal breath sounds bilaterally. Cardiovascular: Tachycardic, regular rhythm. Abdominal: Normal Inspection. Non-tender. No distension. Normal Bowel Sounds. Back: No gross abnormalities. Extremities: Moves all four extremities. Upper extremities: Normal inspection. Normal ROM. Lower extremities: Normal inspection. No edema. Normal ROM. Neurological: Normal cognition. AAOx4. Normal speech. Psychological: Normal affect. Normal Mood. Skin: Hot to the touch. Dry. Normal color. Course - Vital Signs Vital signs: Temp Pulse Resp BP Pulse Ox 103.1 F H 128 H 19 108/92 H 95 10/01/19 02:21 09/30/19 18:19 10/01/19 03:01 10/01/19 03:01 10/01/19 03:01 - Laboratory Result Diagrams: 09/30/19 20:43 09/30/19 20:43 Laboratory results interpreted by me: 09/30/19 09/30/19 09/30/19 20:43 20:43 20:43 WBC 0.1 L* RBC 3.00 L Hgb 9.0 L Hct 25.2 L Plt Count 13 L* Lymph % (Auto) 88.3 H Absolute Neuts (auto) 0.0 L Absolute Lymphs (auto) 0.1 L Absolute Monos (auto) 0.0 L Seg Neutrophils % 2.7 L VBG pCO2 VBG HCO3 Potassium 3.4 L Glucose 143 H Lactic Acid 2.7 H AST 45 H Urine Blood 09/30/19 09/30/19 09/30/19 22:01 23:11 23:14 WBC RBC Hgb Hct Plt Count Lymph % (Auto) Absolute Neuts (auto) Absolute Lymphs (auto) Absolute Monos (auto) Seg Neutrophils % VBG pCO2 33.4 L VBG HCO3 18.8 L Potassium Glucose Lactic Acid 2.6 H AST Urine Blood SMALL H - Consults dr. kt boucher, [facility] oncology Time consulted: 21:04 - dr. boucher accepted pt for transfer to his facility on behalf of dr. lowe, attending with [facility] oncology Reason for consultation: 10/01/19 03:48 [facility] cancer pt with fever Discharge - Discharge Clinical Impression: Leukopenia due to antineoplastic chemotherapy, Thrombocytopenia Fever Qualifiers: Fever type: unspecified Qualified Code(s): R50.9 - Fever, unspecified Condition: Good Disposition: [place] I personally performed the services described in the documentation, reviewed and edited the documentation which was dictated to the scribe in my presence, and it accurately records my words and actions.
[2019-09-30] MEDS ORDERED: KETOROLAC TROMETHAMINE INJ/PF 30 MG/1 ML SDV IV ONE (21:27)
[2019-09-30] MEDS ORDERED: MORPHINE SULFATE 10 MG/ML INJ IV ONE (21:35)
[2019-09-30] MEDS ORDERED: ONDANSETRON HCL INJ/PF 4 MG/2 ML SDV IV ONE (21:36)
[2019-09-30 21:45] LABS: OVALOCYTES SLIGHT; PLATELET COMMENT DECREASED; POIKILOCYTOSIS SLIGHT; TEAR DROP CELLS SLIGHT
[2019-09-30 21:52] LABS: PLATELET COUNT 13 10^3/uL (150-450); WHITE BLOOD COUNT 0.1 10^3/uL (4.0-10.5)
[2019-09-30] MEDS ORDERED: NORMAL SALINE 250 ML IV PRN (22:47)
[2019-09-30 23:22] LABS: VENOUS BLOOD BASE EXCESS -5.8 mmol/L; VENOUS BLOOD HCO3 18.8 mmol/L (20-32); VENOUS BLOOD PCO2 33.4 mmHg (35-63); VENOUS BLOOD PH 7.37 (7.30-7.42)
[2019-09-30 23:42] LABS: APPEARANCE,URINE CLEAR; BILIRUBIN,URINE NEGATIVE (NEGATIVE); COLOR,URINE YELLOW; GLUCOSE, URINE NEGATIVE (NEGATIVE); KETONES,URINE NEGATIVE (NEGATIVE); PROTEIN,URINE NEGATIVE (NEGATIVE); URINE SPECIFIC GRAVITY 1.013; UROBILINOGEN,URINE NEGATIVE mg/dL (<2.0)
[2019-09-30] MEDS ORDERED: VANCOMYCIN HCL INJ 1000 MG VIAL ONE (23:54)
--- NOTE | 2019-10-01 00:03 | RADIOLOGY REPORT (SQ) ---
EXAM DESCRIPTION: CT HEAD WITHOUT IV CONTRAST COMPLETED DATE/TME: 09/30/2019 22:27 CLINICAL HISTORY: 49 years, Female, headache, thrombocytopenia, h/o sah COMPARISON: 08/18/2019 CT TECHNIQUE: 189 Images stored on PACS. All CT scanners at this facility use dose modulation, iterative reconstruction, and/or weight based dosing when appropriate to reduce radiation dose to as low as reasonably achievable (ALARA). [facility]: Dose Right [facility]: CareDose [facility]: Dose Right [facility]: Teradose 4D [facility]: [employer] LIMITATIONS: None. FINDINGS: The globes are intact. The paranasal sinuses and mastoid air cells are well aerated. No displaced or depressed skull fracture. No intra or extra-axial hemorrhage. CT is limited for evaluation of acute infarct. No CT evidence for large or territorial acute infarct. No mass or midline shift IMPRESSION: No acute intracranial abnormality TECHNICAL DOCUMENTATION: Quality ID # 436: Final reports with documentation of one or more dose reduction techniques (e.g., Automated exposure control, adjustment of the mA and/or kV according to patient size, use of iterative reconstruction technique) copyright 2011 [employer]- All Rights Reserved
[2019-10-01] MEDS ORDERED: ACETAMINOPHEN 325 MG TABLET PO ONE ×3 (00:37→23:23)
[2019-10-01] MEDS ORDERED: DIPHENHYDRAMINE HCL 50 MG/ML VIAL IV ONE (00:37)
[2019-10-01] MEDS ORDERED: HYDROMORPHONE HCL INJ/PF 2 MG/ML AMPULE IV ONE ×3 (00:38→22:09)
[2019-10-01] MEDS ORDERED: IBUPROFEN 600 MG TABLET PO ONE ×2 (02:44→22:19)
[2019-10-01] MEDS ORDERED: NORMAL SALINE 1000 ML 1,000 ML IV ONE ×2 (06:14→06:26)
[2019-10-01] MEDS ORDERED: VANCOMYCIN HCL INJ 1000 MG VIAL IV SCH (10:00)
[2019-10-01] MEDS: CEFEPIME 2 GM/D5W RTU 2 GM/50 ML RTUPB IV SCH ×2 (10:48→22:31)
[2019-10-01 11:28] LABS: PATH REVIEW PATHOLOGIST REVIEWED
--- NOTE | 2019-10-01 14:53 | EKG REPORT ---
SEVERITY:- ABNORMAL ECG - SINUS TACHYCARDIA PROBABLE RIGHT VENTRICULAR HYPERTROPHY : Confirmed by: Diana Montemayor MD 01-Oct-2019 14:51:37
[2019-10-01 18:41] LABS: HEMATOCRIT 19.5 % (36.0-47.0); MEAN CORPUSCULAR HEMOGLOBIN 29.9 pg (27.0-33.4); MEAN CORPUSCULAR HGB CONC 35.4 g/dL (32.0-36.0); MEAN CORPUSCULAR VOLUME 85 fl (80-97)
[2019-10-01 18:51] LABS: WHITE BLOOD COUNT < 0.1 10^3/uL (4.0-10.5)
[2019-10-01 18:54] LABS: PLATELET COUNT 22 10^3/uL (150-450)
[2019-10-01 19:02] LABS: TOTAL CELLS COUNTED 100
[2019-10-01 19:04] LABS: LYMPHOCYTES % (MANUAL) 84 % (13-45); SEGMENTED NEUTROPHILS % (MAN) 4 % (42-78)
[2019-10-01 19:05] LABS: EOSINOPHILS % (MANUAL) 4 % (0-6); MONOCYTES % (MANUAL) 8 % (3-13)
[2019-10-01 19:07] LABS: PLATELET COMMENT DECREASED
[2019-10-01 19:08] LABS: ANISOCYTOSIS SLIGHT
[2019-10-01 19:09] LABS: OVALOCYTES SLIGHT
[2019-10-01 19:17] LABS: HEMOGLOBIN 6.9 g/dL (12.0-15.5)
--- NOTE | 2019-10-01 22:14 | ER Document Report ---
Doctor's Note Notes: 10/01/19 22:10 This presented at 2000 hrs. to start my 8P to 6 a shift. I was informed by Dr. Owen that the patient was still awaiting a bed at [facility]. This MD contacted [facility] and spoke to Dr. Herndon with heme-onc. Unfortunately at 2030 hrs. when I spoke to Dr. Herndon, there were still no beds available. This MD he requested a ED to ED transfer given the patient's significant illness and special needs in terms of inpatient oncology which we do not have at this time. This spoke to Dr. Trey Jaquez, ED attending at [facility] at 2050 hrs. unfortunately, the ED was at capacity and he was unable to accept transfer to his emergency department. However at 2210 hrs., [facility] transfer center conta cted parth HOANG and informed me that Dr. Jaquez is now able to to accept the patient for an ED to ED transfer.
--- NOTE | 2019-10-01 23:22 | ER Document Report ---
Doctor's Note Notes: 10/01/19 23:21 Transport has arrived to take patient to [facility]. This MD went into the patient's room just prior to transfer. Patient is sitting up in bed, alert and oriented x3 and is in no acute distress.
[2019-10-01 23:40] VITALS: BP 112/65
== END 2019-10-01 23:40 | disposition short-term general hospital (02) ==
LOC: ER 18:11
DX: D70.1 Agranulocytosis secondary to cancer chemotherapy (principal); C92.00 Acute myeloblastic leukemia, not having achieved remission; T45.1X5A Adverse effect of antineoplastic and immunosuppressive drugs, initial encounter; D69.6 Thrombocytopenia, unspecified; R50.9 Fever, unspecified; Z91.041 Radiographic dye allergy status; Z87.891 Personal history of nicotine dependence; R53.1 Weakness; R51 Headache; M79.10 Myalgia, unspecified site; R00.0 Tachycardia, unspecified
CPT/HCPCS: 93005; 96376; 99285; 96361; 96375; 96365; 96366; 96367; 86900; 86901; 36415; 87040; 36430; 83605; 85025; 85610; 87077; 80053; 81001; 87186; 82803; 87804; 87150 ×26; 71046; 70450; 93010; P9035; J1200; J2270; J1170; J2405; J7030 ×2; J3370; J0692 ×2